=== PATIENT | male | born 1955 | race African-American/Black ===

== ENCOUNTER 2020-08-04 13:02 | Emergency (ER) | payer MEDICARE ==
[~2020-08-04] VITALS: Ht 175.3 cm; Wt 72.0 kg
[~2020-08-04 13:02] MED LIST: ACET-3161; AMLO10TA4; DOCU-266; FOLI-43; SIMV40TA2
[2020-08-04] MEDS ORDERED: KETOROLAC 30MG/ML VIAL IV STA (15:22)
[2020-08-04] MEDS ORDERED: SODIUM CHLORIDE 0.9% 1,000 ML IV ONE (15:22)
[2020-08-04 16:39] VITALS: BP 136/90
[2020-08-04 16:55] LABS: BASOPHILS % 1.3 % (0.0-2.0); EOSINOPHILS % 0.5 % (0.0-5.0); HEMATOCRIT. 32.8 % (42.0-52.0); HEMOGLOBIN. 10.6 g/dL (14.0-18.0); LYMPHOCYTES % 24.5 % (20.0-50.0); MEAN CORPUSCULAR HEMOGLOBIN 27.1 pg (28.0-32.0); MEAN CORPUSCULAR VOLUME 84.2 fL (80.0-94.0); MEAN PLATELET VOLUME 9.7 fl (7.4-10.4); MONOCYTES % 10.6 % (2.0-8.0); NEUTROPHILS % 63.1 % (40.0-76.0); PLATELET 199 x1000/uL (130-400); RED CELL DISTRIBUTION WIDTH 17.6 % (11.6-14.6)
[2020-08-04 16:58] LABS: CHLORIDE 103 mEq/L (98-107)
[2020-08-04 17:28] LABS: CLARITY URINE CLEAR (CLEAR); COLOR URINE YELLOW (YELLOW); KETONES URINE NEGATIVE (NEGATIVE); LEUKOCYTE ESTERASE URINE NEGATIVE (NEGATIVE); NITRITE URINE NEGATIVE (NEGATIVE); OCCULT BLOOD URINE NEGATIVE (NEGATIVE); PH URINE 6.5 (4.5-8.0); PROTEIN URINE NEGATIVE (NEGATIVE); SPECIFIC GRAVITY URINE 1.039 (1.005-1.030); UROBILINOGEN URINE 0.2 E.U./dL (0.2-1.0)
== END 2020-08-04 18:47 | disposition left against medical advice (07) ==
LOC: ER 13:02
DX: K40.90 Unilateral inguinal hernia, without obstruction or gangrene, not specified as recurrent (principal); K52.9 Noninfective gastroenteritis and colitis, unspecified; I10 Essential (primary) hypertension; E11.9 Type 2 diabetes mellitus without complications; Z86.73 Personal history of transient ischemic attack (TIA), and cerebral infarction without residual deficits
CPT/HCPCS: 36415; 71045; 74176; 80053; 81003; 83690; 85025; 93005; 96374; 99285; J1885; J7030

== ENCOUNTER 2020-08-13 13:17 | Emergency (ER) | payer MEDICARE ==
[~2020-08-13] VITALS: Ht 175.3 cm; Wt 64.3 kg
[2020-08-13 13:28] VITALS: BP 137/95
== END 2020-08-13 16:25 | disposition home or self-care (01) ==
LOC: ER 13:17
DX: K40.90 Unilateral inguinal hernia, without obstruction or gangrene, not specified as recurrent (principal); I10 Essential (primary) hypertension
CPT/HCPCS: 99281